=== PATIENT | female | born 1955 | race Caucasian/White ===

== ENCOUNTER 2016-11-12 09:11 | Outpatient (CLI) | payer OTHER ==
[2016-11-12 10:38] LABS: eGFR (African) > 60; eGFR (Non-African) > 60
== END 2016-11-12 12:38 ==
LOC: LAB 09:11
PROVIDERS: ATTEND Family Medicine
DX: Z00.00 Encounter for general adult medical examination without abnormal findings (principal)
CPT/HCPCS: 36415; 80053; 80061

== ENCOUNTER 2019-02-11 09:29 | Outpatient (CLI) | payer OTHER ==
[2019-02-11 10:06] LABS: BASOPHILS % 0.5 % (0.0-1.5); NEUTROPHILS # 2.2 # k/uL (1.4-7.7)
[2019-02-11 11:09] LABS: eGFR (Non-African) > 60
[2019-02-11 11:10] LABS: HDL 85 mg/dL (>40)
== END 2019-02-11 09:32 ==
LOC: RT 09:29
PROVIDERS: ATTEND Family Medicine
DX: I49.9 Cardiac arrhythmia, unspecified (principal); Z13.220 Encounter for screening for lipoid disorders; Z13.29 Encounter for screening for other suspected endocrine disorder; Z13.0 Encounter for screening for diseases of the blood and blood-forming organs and certain disorders involving the immune mechanism
CPT/HCPCS: 36415; 80053; 80061; 84443; 85025; 93005